=== PATIENT | female | born 1980 | race African-American/Black ===

== ENCOUNTER 2022-02-13 22:30 | Inpatient (IN) | payer MEDICAID ==
[~2022-02-13] VITALS: Ht 154.9 cm; Wt 109.8 kg
[2022-02-14] MEDS ORDERED: RHO(D) IMMUNE GLOBULIN 300 MCG/SYR IM ONE (02:30)
[2022-02-14] MEDS ORDERED: NALOXONE HCL 0.4 MG/ML 1ML VIAL IM PRN (02:30)
[2022-02-14] MEDS ORDERED: LACTATED RINGERS 1,000 ML IV SCH (02:30)
[2022-02-14] MEDS ORDERED: MISOPROSTOL 100MCG TABLET VG SCH (02:30)
[2022-02-14] MEDS ORDERED: CARBOPROST TROMETHAMINE 250 MCG/ML AMPUL IM PRN (02:30)
[2022-02-14] MEDS ORDERED: METHYLERGONOVINE MALEATE 0.2 MG/ML IM PRN (02:30)
[2022-02-14] MEDS ORDERED: LIDOCAINE HCL 1% 20ML VIAL (Pyxis) INJ INFIL SCH (02:30)
[2022-02-14] MEDS ORDERED: BUTORPHANOL TARTRATE 2 MG/ML VIAL IV PRN (02:30)
[2022-02-14 02:57] LABS: BASOPHILS % 0.3 % (0.0-2.0); HEMATOCRIT. 26.7 % (36.0-48.0); LYMPHOCYTES % 29.8 % (20.0-50.0); MEAN CORPUSCULAR HEMOGLOBIN 29.2 pg (28.0-32.0); MEAN CORPUSCULAR VOLUME 86.7 fL (81.0-99.0); MEAN PLATELET VOLUME 7.3 fl (7.4-10.4); NEUTROPHILS % 56.9 % (40.0-76.0); PLATELET 248 x1000/uL (130-400); RED BLOOD CELL COUNT 3.08 mill/uL (4.2-5.4); RED CELL DISTRIBUTION WIDTH 13.8 % (11.6-14.6)
[2022-02-14 03:02] LABS: INR 1.1; PROTHROMBIN TIME 11.3 sec (9.6-11.0)
[2022-02-14 03:28] LABS: CLARITY URINE CLEAR (CLEAR); COLOR URINE YELLOW (YELLOW); KETONES URINE TRACE (NEGATIVE); LEUKOCYTE ESTERASE URINE 2+ (NEGATIVE); NITRITE URINE POSITIVE (NEGATIVE); OCCULT BLOOD URINE NEGATIVE (NEGATIVE); PROTEIN URINE NEGATIVE (NEGATIVE); SPECIFIC GRAVITY URINE 1.015 (1.005-1.030)
[2022-02-14 03:31] LABS: HEPATITIS B SURFACE ANTIGEN NEGATIVE
[2022-02-14 03:40] LABS: *AMPHETAMINES SCREEN URINE NEGATIVE (NEGATIVE); *BARBITURATES SCREEN URINE NEGATIVE (NEGATIVE); *BENZODIAZEPINES SCREEN URINE NEGATIVE (NEGATIVE); *COCAINE SCREEN URINE NEGATIVE (NEGATIVE); CANNABINOID URINE SCREEN NEGATIVE (NEGATIVE); METHADONE URINE SCREEN NEGATIVE (NEGATIVE); OPIATES URINE SCREEN NEGATIVE (NEGATIVE); PHENCYCLIDINE URINE SCREEN NEGATIVE (NEGATIVE)
[2022-02-14] MEDS: OXYTOCIN 30 UNITS/500ML NS PMX 500 ML IV SCH ×2 (07:34→21:51)
[2022-02-14] MEDS: LABETALOL HCL 200MG TABLET PO SCH ×2 (12:45→17:12)
[2022-02-14] MEDS ORDERED: RHO(D) IMMUNE GLOBULIN 300 MCG/SYR IM PRN (21:30)
[2022-02-14] MEDS ORDERED: OXYTOCIN 30 UNITS/500ML NS PMX 500 ML IV SCH (21:30)
[2022-02-14] MEDS ORDERED: GLYCERIN/WITCH HAZEL LEAF MEDICATED PAD TOP PRN (21:30)
[2022-02-14] MEDS ORDERED: BISACODYL 10MG SUPP PR PRN (21:30)
[2022-02-14] MEDS ORDERED: OXYCODONE HCL/ACETAMINOPHEN 5/325MG TABLET PO PRN (21:30)
[2022-02-14] MEDS ORDERED: HEMORRHOIDAL SUPP PR PRN (21:30)
[2022-02-14] MEDS ORDERED: IBUPROFEN 400MG TABLET PO PRN (21:30)
[2022-02-14] MEDS ORDERED: BENZOCAINE/LANOLIN/ALOE VERA SPRAY TOP PRN (21:30)
[2022-02-14] MEDS ORDERED: LANOLIN OINT 7GM TUBE TOP PRN (21:30)
[2022-02-14] MEDS ORDERED: DIPHENHYDRAMINE 25MG CAPSULE PO PRN (21:30)
[2022-02-14 23:30] VITALS: BP 152/69
[2022-02-15] MEDS: IBUPROFEN 800MG TABLET PO PRN ×3 (00:02→20:42)
[2022-02-15 01:16] LABS: BASOPHILS % 0.1 % (0.0-2.0); EOSINOPHILS % 0.2 % (0.0-5.0); HEMOGLOBIN. 9.3 g/dL (12.0-16.0); LYMPHOCYTES % 9.8 % (20.0-50.0); MEAN CORPUSCULAR HEMOGLOBIN 28.3 pg (28.0-32.0); MEAN CORPUSCULAR VOLUME 85.7 fL (81.0-99.0); MEAN PLATELET VOLUME 7.2 fl (7.4-10.4); MONOCYTES % 8.5 % (2.0-8.0); NEUTROPHILS % 81.4 % (40.0-76.0); PLATELET 252 x1000/uL (130-400); RED BLOOD CELL COUNT 3.27 mill/uL (4.2-5.4); RED CELL DISTRIBUTION WIDTH 13.9 % (11.6-14.6)
[2022-02-15 05:45] VITALS: BP 152/96
[2022-02-15 05:46] VITALS: BP 173/88
[2022-02-15] MEDS: LABETALOL HCL 200MG TABLET PO SCH ×2 (06:16→20:42)
[2022-02-15] MEDS: FERROUS SULFATE 325MG TABLET PO SCH ×3 (07:30→17:06)
[2022-02-15 08:00] VITALS: BP 113/62
[2022-02-15] MEDS: SIMETHICONE 80MG TABLET CHEW PO SCH ×4 (08:00→20:43)
[2022-02-15] MEDS: PRENATAL VIT/FE FUMARATE/FA TABLET PO SCH (09:00)
[2022-02-15 20:28] VITALS: BP 159/82
[2022-02-15] MEDS ORDERED: DOCUSATE SODIUM 100MG CAPSULE PO SCH (21:00)
[2022-02-16 00:12] VITALS: BP 136/63
[2022-02-16 04:17] VITALS: BP 142/63
[2022-02-16 07:30] VITALS: BP 149/82
[2022-02-16] MEDS: PRENATAL VIT/FE FUMARATE/FA TABLET PO SCH (08:19)
[2022-02-16] MEDS: FERROUS SULFATE 325MG TABLET PO SCH ×2 (08:19→12:30)
[2022-02-16] MEDS: SIMETHICONE 80MG TABLET CHEW PO SCH ×2 (08:21→12:49)
[2022-02-16] MEDS: LABETALOL HCL 200MG TABLET PO SCH (08:21)
[2022-02-16] MEDS ORDERED: MEDROXYPROGESTERONE ACETATE 150MG/ML VIAL IM NR (10:00)
[2022-02-16] MEDS ORDERED: IBUP-2030 PO (14:03)
[2022-02-16] MEDS ORDERED: LABE200T9 PO (14:03)
== END 2022-02-16 15:37 | disposition home or self-care (01) | DRG 560 ==
LOC: OBSVTOIN 22:30 → 8 EST LDRP 22:30 → 8EST 02-15 00:27
PROVIDERS: ADMIT Obstetrics & Gynecology; ATTEND Obstetrics & Gynecology
PROC: 10E0XZZ Delivery of Products of Conception, External Approach (ICD-10-PCS; principal; 2022-02-14)
PROC: 3E0R3BZ Introduction of Anesthetic Agent into Spinal Canal, Percutaneous Approach (ICD-10-PCS; 2022-02-14)
PROC: 00HU33Z Insertion of Infusion Device into Spinal Canal, Percutaneous Approach (ICD-10-PCS; 2022-02-14)
DX: O13.4 Gestational [pregnancy-induced] hypertension without significant proteinuria, complicating childbirth (principal); Z37.0 Single live birth; O14.94 Unspecified pre-eclampsia, complicating childbirth; Z79.1 Long term (current) use of non-steroidal anti-inflammatories (NSAID); Z20.822 Contact with and (suspected) exposure to COVID-19; Z79.899 Other long term (current) drug therapy; Z3A.39 39 weeks gestation of pregnancy
CPT/HCPCS: 36415; 76805; 76818; 80305; 81003; 85025; 85384; 86592; 86703; 86762; 86850; 86900; 87077; 87186; 87340; 87426; 99281; G0378; J0595; J1050; J7120; J2590

== ENCOUNTER 2024-07-09 16:13 | Inpatient (IN) | payer MEDICAID ==
[~2024-07-09] VITALS: Ht 154.9 cm; Wt 97.1 kg
[~2024-07-09 16:13] MED LIST: IBUP-2030 PO; LABE200T9 PO
[2024-07-09] MEDS: MORPHINE SULFATE 4 MG/ML INJ (FOR IV/IM USE) IV STA (16:54)
[2024-07-09] MEDS: ONDANSETRON HCL 4MG/2ML INJ IV STA (16:54)
[2024-07-09 16:59] LABS: BASOPHILS % 0.7 % (0.0-2.0); EOSINOPHILS % 1.2 % (0.0-5.0); HEMATOCRIT. 37.4 % (36.0-48.0); HEMOGLOBIN. 12.9 g/dL (12.0-16.0); LYMPHOCYTES % 37.8 % (20.0-50.0); MEAN CORPUSCULAR HEMOGLOBIN 31.9 pg (28.0-32.0); MEAN CORPUSCULAR HGB CONC 34.5 g/dL (31.0-37.0); MEAN CORPUSCULAR VOLUME 92.6 fL (81.0-99.0); MEAN PLATELET VOLUME 8.3 fl (7.4-10.4); MONOCYTES % 5.2 % (2.0-8.0); NEUTROPHILS % 55.1 % (40.0-76.0); PLATELET 327 x1000/uL (130-400); RED BLOOD CELL COUNT 4.03 mill/uL (4.2-5.4); RED CELL DISTRIBUTION WIDTH 14.1 % (11.6-14.6); WHITE BLOOD COUNT 7.6 x1000/uL (4.5-11.0)
[2024-07-09 17:06] LABS: CHLORIDE 101 mEq/L (98-107); POTASSIUM 3.4 mEq/L (3.5-5.1); SODIUM 136 mEq/L (136-145)
[2024-07-09 17:07] LABS: CALCIUM 9.9 mg/dL (8.7-10.4); CARBON DIOXIDE 23 mEq/L (21-32)
[2024-07-09 17:10] LABS: INR 1.1; PROTHROMBIN TIME 12.5 sec (9.6-11.0)
[2024-07-09 17:12] LABS: CREATININE 1.2 mg/dL (0.6-1.0); GLUCOSE 169 mg/dL (70-105); UREA NITROGEN BLOOD 15 mg/dL (9-23)
[2024-07-09 17:13] LABS: TROPONIN I HIGH SENSITIVITY 4 ng/L (3.0-34)
[2024-07-09 17:14] LABS: ALANINE AMINOTRANSFERASE 8 IU/L (10-49); ALBUMIN 4.7 g/dL (3.2-4.8); ASPARTATE AMINOTRANSFERASE 18 IU/L (<34); BILIRUBIN DIRECT 0.2 mg/dL (<=3.0); BILIRUBIN TOTAL 0.6 mg/dL (0.1-1.0); ETHANOL BLOOD < 10 mg/dL (<10); PROTEIN TOTAL 8.5 g/dL (6.0-8.3)
[2024-07-09 17:22] LABS: HCG SCREEN NEGATIVE
[2024-07-09 20:00] VITALS: BP 155/77; PULSE 51; RESP 16; TEMP 36.50292; O2SAT 97
[2024-07-09] MEDS ORDERED: HYDRALAZINE 20MG/ML VIAL IV PRN (20:30)
[2024-07-09] MEDS ORDERED: IPRATROPIUM/ALBUTEROL 0.5-3(2.5)MG/3ML NEB HHN PRN (21:00)
[2024-07-09] MEDS: SODIUM CHL 0.9% + KCL 20MEQ/L 1,000 ML IV ONE (22:13)
[2024-07-10] VITALS: PULSE 59; RESP 19; TEMP 36.55848; O2SAT 97
[2024-07-10] MEDS: MORPHINE SULFATE 2 MG/ML INJ (NOT FOR IM USE) IV PRN (00:47)
[2024-07-10] MEDS: MORPHINE SULFATE 4 MG/ML INJ (FOR IV/IM USE) IV STA (08:20)
[2024-07-10] MEDS: ONDANSETRON HCL 4MG/2ML INJ IV STA (08:21)
[2024-07-10] MEDS: PANTOPRAZOLE SODIUM 40 MG/VIAL IV SCH (08:23)
[2024-07-10] MEDS: ONDANSETRON HCL 4MG/2ML INJ IV PRN (08:23)
[2024-07-10] MEDS ORDERED: LOSA1TAB37 MT (08:36)
[2024-07-10] MEDS ORDERED: CARV25TA47 MT (08:36)
[2024-07-10 08:37] LABS: BASOPHILS % 0.3 % (0.0-2.0); EOSINOPHILS % 0.1 % (0.0-5.0); HEMATOCRIT. 40.2 % (36.0-48.0); HEMOGLOBIN. 13.8 g/dL (12.0-16.0); LYMPHOCYTES % 17.1 % (20.0-50.0); MEAN CORPUSCULAR HEMOGLOBIN 32.2 pg (28.0-32.0); MEAN CORPUSCULAR HGB CONC 34.2 g/dL (31.0-37.0); MEAN CORPUSCULAR VOLUME 94.1 fL (81.0-99.0); MEAN PLATELET VOLUME 8.4 fl (7.4-10.4); MONOCYTES % 5.3 % (2.0-8.0); NEUTROPHILS % 77.2 % (40.0-76.0); PLATELET 321 x1000/uL (130-400); RED BLOOD CELL COUNT 4.27 mill/uL (4.2-5.4); RED CELL DISTRIBUTION WIDTH 14.3 % (11.6-14.6); WHITE BLOOD COUNT 8.5 x1000/uL (4.5-11.0)
[2024-07-10 09:06] LABS: CARBON DIOXIDE 26 mEq/L (21-32); CHLORIDE 105 mEq/L (98-107); POTASSIUM 3.4 mEq/L (3.5-5.1); SODIUM 141 mEq/L (136-145)
[2024-07-10 09:07] LABS: CALCIUM 9.5 mg/dL (8.7-10.4); T4 FREE 1.32 ng/dL (0.89-1.76)
[2024-07-10 09:11] LABS: CREATININE 1.1 mg/dL (0.6-1.0); GLUCOSE 96 mg/dL (70-105)
[2024-07-10 09:12] LABS: LDL CHOLESTEROL 99 mg/dL (5-100); TRIGLYCERIDE 50 mg/dL (0-150); UREA NITROGEN BLOOD 12 mg/dL (9-23)
[2024-07-10 09:13] LABS: CHOLESTEROL 175 mg/dL (<200); HDL CHOLESTEROL 66 mg/dL (>65)
[2024-07-10 09:14] LABS: PHOSPHORUS 3.6 mg/dL (2.5-4.9)
[2024-07-10] MEDS ORDERED: SKIN ADHESIVE 0.7 GM EA TOP ONE (09:35)
[2024-07-10] MEDS ORDERED: BUPIVACAINE HCL/PF 0.5% (5MG/ML) 10ML ONE (09:35)
[2024-07-10] MEDS ORDERED: HYDRALAZINE 10 MG in SODIUM CHLORIDE 0.9% 49.5 ML IV PRN (09:45)
[2024-07-10] MEDS ORDERED: NALOXONE HCL 0.4MG/ML VIAL IV PRN (09:45)
[2024-07-10] MEDS ORDERED: ONDANSETRON HCL 4MG/2ML INJ ONE (11:52)
[2024-07-10] MEDS ORDERED: DEXAMETHASONE 4MG/ML 1ML VIAL ONE (11:52)
[2024-07-10] MEDS ORDERED: ROCURONIUM BROMIDE 10MG/ML VIAL 5ML IV ONE (11:52)
[2024-07-10] MEDS ORDERED: MIDAZOLAM HCL 2 MG/2 ML VIAL ONE (11:53)
[2024-07-10] MEDS ORDERED: FENTANYL CITRATE/PF 50MCG/ML 2ML VIAL ONE (11:53)
[2024-07-10 12:00] VITALS: BP 170/91; PULSE 60; RESP 18; RESP 19; TEMP 36.44736; O2SAT 100
[2024-07-10 12:51] VITALS: BP 155/84; PULSE 55; RESP 18; TEMP 36.7516
[2024-07-10] MEDS ORDERED: ONDANSETRON HCL 4MG/2ML INJ IV PRN ×2 (13:00→13:45)
[2024-07-10] MEDS ORDERED: DEXT 5%/0.45% NACL KCL 20MEQ/L 1,000 ML IV SCH (13:00)
[2024-07-10] MEDS ORDERED: MORPHINE SULFATE 4 MG/ML INJ (FOR IV/IM USE) IV PRN (13:00)
[2024-07-10] MEDS ORDERED: HYDROMORPHONE HCL/PF 2MG/ML INJ ONE (13:31)
[2024-07-10] MEDS ORDERED: LABETALOL 5MG/ML 4ML INJ IV PRN (13:45)
[2024-07-10] MEDS ORDERED: HYDROMORPHONE HCL/PF 1MG/ML INJ IV PRN (13:45)
[2024-07-10] MEDS ORDERED: MEPERIDINE HCL/PF 25MG/ML CPJ IV PRN (13:45)
[2024-07-10] MEDS: DEXT 5%/0.45% NACL 1000ML 1,000 ML IV SCH (15:53)
[2024-07-10] MEDS: PIPERACILLIN/TAZO 3.375G/50ML 50 ML IV SCH (15:53)
[2024-07-10 16:11] VITALS: BP 114/84; PULSE 72; RESP 20; TEMP 36.22512; O2SAT 100
[2024-07-10 20:00] VITALS: BP 126/85; PULSE 78; RESP 18; TEMP 37.11408; O2SAT 99
[2024-07-11] VITALS: BP 121/80; PULSE 80; RESP 18; TEMP 36.55848; O2SAT 98
[2024-07-11 04:00] VITALS: BP 134/79; PULSE 93; RESP 18; TEMP 37.00296; O2SAT 100
[2024-07-11] MEDS: MORPHINE SULFATE 2 MG/ML INJ (NOT FOR IM USE) IV PRN (06:23)
[2024-07-11 06:56] LABS: CARBON DIOXIDE 28 mEq/L (21-32); CHLORIDE 106 mEq/L (98-107); POTASSIUM 3.5 mEq/L (3.5-5.1); SODIUM 141 mEq/L (136-145)
[2024-07-11 06:57] LABS: CALCIUM 8.7 mg/dL (8.7-10.4)
[2024-07-11 07:02] LABS: CREATININE 1.1 mg/dL (0.6-1.0); GLUCOSE 117 mg/dL (70-105); UREA NITROGEN BLOOD 11 mg/dL (9-23)
[2024-07-11 07:24] LABS: BASOPHILS % 0.2 % (0.0-2.0); HEMATOCRIT. 31.5 % (36.0-48.0); HEMOGLOBIN. 10.9 g/dL (12.0-16.0); LYMPHOCYTES % 19.5 % (20.0-50.0); MEAN CORPUSCULAR HEMOGLOBIN 32.2 pg (28.0-32.0); MEAN CORPUSCULAR HGB CONC 34.5 g/dL (31.0-37.0); MEAN CORPUSCULAR VOLUME 93.5 fL (81.0-99.0); MEAN PLATELET VOLUME 8.5 fl (7.4-10.4); MONOCYTES % 8.1 % (2.0-8.0); NEUTROPHILS % 72.2 % (40.0-76.0); PLATELET 287 x1000/uL (130-400); RED BLOOD CELL COUNT 3.37 mill/uL (4.2-5.4); RED CELL DISTRIBUTION WIDTH 14.5 % (11.6-14.6); WHITE BLOOD COUNT 10.2 x1000/uL (4.5-11.0)
[2024-07-11 08:00] VITALS: BP 129/76; PULSE 78; RESP 20; TEMP 36.114; O2SAT 99
[2024-07-11] MEDS: ENOXAPARIN 30MG/0.3ML SYR SUBCUT SCH (08:27)
[2024-07-11] MEDS: HYDROCHLOROTHIAZIDE 25MG TABLET PO SCH (08:27)
[2024-07-11] MEDS: LOSARTAN 100 MG TABLET PO SCH (08:28)
[2024-07-11 12:00] VITALS: BP_SYST 117; BP_SYST 140; BP_DIAS 64; BP_DIAS 82; PULSE 65; PULSE 85; RESP 18; TEMP 36.3918; TEMP 36.55848; O2SAT 98; O2SAT 99
[2024-07-11 16:00] VITALS: BP 125/78; PULSE 85; RESP 20; TEMP 36.22512; O2SAT 99
[2024-07-11 20:00] VITALS: BP 124/71; PULSE 86; RESP 18; TEMP 37.16964; O2SAT 95
[2024-07-12] VITALS: BP 119/65; PULSE 85; RESP 19; TEMP 37.28076; O2SAT 97
[2024-07-12 04:00] VITALS: BP 116/60; PULSE 84; RESP 20; TEMP 37.16964; O2SAT 98
[2024-07-12 08:08] VITALS: BP 132/79; PULSE 72; RESP 18; TEMP 36.114; O2SAT 100
[2024-07-12 11:53] LABS: CHLORIDE 102 mEq/L (98-107); POTASSIUM 3.3 mEq/L (3.5-5.1); SODIUM 139 mEq/L (136-145)
[2024-07-12 11:54] LABS: CARBON DIOXIDE 31 mEq/L (21-32)
[2024-07-12 11:55] LABS: CALCIUM 9.2 mg/dL (8.7-10.4)
[2024-07-12 11:59] LABS: CREATININE 1.1 mg/dL (0.6-1.0)
[2024-07-12 12:00] LABS: GLUCOSE 133 mg/dL (70-105); UREA NITROGEN BLOOD 8 mg/dL (9-23)
[2024-07-12 12:02] LABS: PHOSPHORUS 2.1 mg/dL (2.5-4.9)
[2024-07-12 12:07] LABS: BASOPHILS % 0.5 % (0.0-2.0); EOSINOPHILS % 0.5 % (0.0-5.0); HEMATOCRIT. 28.7 % (36.0-48.0); LYMPHOCYTES % 25.9 % (20.0-50.0); MEAN CORPUSCULAR HEMOGLOBIN 32.8 pg (28.0-32.0); MEAN CORPUSCULAR HGB CONC 34.9 g/dL (31.0-37.0); MEAN PLATELET VOLUME 8.4 fl (7.4-10.4); MONOCYTES % 7.7 % (2.0-8.0); NEUTROPHILS % 65.4 % (40.0-76.0); PLATELET 262 x1000/uL (130-400); RED BLOOD CELL COUNT 3.05 mill/uL (4.2-5.4); RED CELL DISTRIBUTION WIDTH 14.4 % (11.6-14.6); WHITE BLOOD COUNT 7.7 x1000/uL (4.5-11.0)
[2024-07-12 12:22] VITALS: BP 146/80; PULSE 82; RESP 18; TEMP 36.114; O2SAT 100
[2024-07-12 16:00] VITALS: BP 143/78; PULSE 77; RESP 18; TEMP 36.114; O2SAT 100
[2024-07-12] MEDS: POTASSIUM PHOSPHATE 30 MMOL in SODIUM CHLORIDE 0.9% 490 ML IV ONE (18:25)
[2024-07-12 20:00] VITALS: BP 114/47; PULSE 79; RESP 18; TEMP 37.11408; O2SAT 100
[2024-07-13] VITALS: BP 112/42; PULSE 78; RESP 18; TEMP 37.00296; O2SAT 95
[2024-07-13 04:00] VITALS: BP 121/50; PULSE 78; RESP 18; TEMP 36.72516; O2SAT 99
[2024-07-13 07:27] VITALS: BP 125/50; PULSE 74; RESP 18; TEMP 36.114; O2SAT 99
[2024-07-13 10:31] LABS: BASOPHILS % 0.3 % (0.0-2.0); EOSINOPHILS % 1.3 % (0.0-5.0); HEMATOCRIT. 29.6 % (36.0-48.0); HEMOGLOBIN. 9.6 g/dL (12.0-16.0); LYMPHOCYTES % 28.6 % (20.0-50.0); MEAN CORPUSCULAR HEMOGLOBIN 30.7 pg (28.0-32.0); MEAN CORPUSCULAR HGB CONC 32.5 g/dL (31.0-37.0); MEAN CORPUSCULAR VOLUME 94.2 fL (81.0-99.0); MEAN PLATELET VOLUME 8.3 fl (7.4-10.4); MONOCYTES % 6.8 % (2.0-8.0); PLATELET 308 x1000/uL (130-400); RED BLOOD CELL COUNT 3.14 mill/uL (4.2-5.4); RED CELL DISTRIBUTION WIDTH 14.3 % (11.6-14.6); WHITE BLOOD COUNT 7.1 x1000/uL (4.5-11.0)
[2024-07-13 10:36] LABS: CHLORIDE 101 mEq/L (98-107); POTASSIUM 3.2 mEq/L (3.5-5.1); SODIUM 138 mEq/L (136-145)
[2024-07-13 10:37] LABS: CALCIUM 9.4 mg/dL (8.7-10.4); CARBON DIOXIDE 31 mEq/L (21-32)
[2024-07-13 10:42] LABS: CREATININE 0.9 mg/dL (0.6-1.0); GLUCOSE 135 mg/dL (70-105); UREA NITROGEN BLOOD 8 mg/dL (9-23)
[2024-07-13 12:09] VITALS: BP 118/62; PULSE 67; RESP 18; TEMP 36.6696; O2SAT 99
[2024-07-13 15:30] VITALS: BP 114/54; PULSE 68; RESP 18; TEMP 36.6696; O2SAT 100
[2024-07-13] MEDS: POTASSIUM CHLORIDE 20MEQ TABLET SR PO NR (17:20)
[2024-07-13 20:00] VITALS: BP 105/55; PULSE 75; RESP 18; TEMP 36.83628; O2SAT 97
[2024-07-14] VITALS: BP 101/55; PULSE 80; RESP 20; TEMP 36.89184; O2SAT 96
[2024-07-14 04:00] VITALS: BP 115/55; PULSE 72; RESP 20; TEMP 36.89184; O2SAT 98
[2024-07-14 07:02] LABS: BASOPHILS % 0.5 % (0.0-2.0); EOSINOPHILS % 2.5 % (0.0-5.0); HEMATOCRIT. 26.2 % (36.0-48.0); HEMOGLOBIN. 8.9 g/dL (12.0-16.0); LYMPHOCYTES % 30.8 % (20.0-50.0); MEAN CORPUSCULAR HEMOGLOBIN 31.8 pg (28.0-32.0); MEAN CORPUSCULAR VOLUME 93.6 fL (81.0-99.0); MEAN PLATELET VOLUME 7.9 fl (7.4-10.4); NEUTROPHILS % 58.2 % (40.0-76.0); PLATELET 274 x1000/uL (130-400); RED CELL DISTRIBUTION WIDTH 14.2 % (11.6-14.6); WHITE BLOOD COUNT 6.2 x1000/uL (4.5-11.0)
[2024-07-14 07:11] LABS: CARBON DIOXIDE 30 mEq/L (21-32); CHLORIDE 102 mEq/L (98-107); POTASSIUM 3.4 mEq/L (3.5-5.1); SODIUM 138 mEq/L (136-145)
[2024-07-14 07:12] LABS: CALCIUM 9.3 mg/dL (8.7-10.4)
[2024-07-14 07:17] LABS: GLUCOSE 108 mg/dL (70-105); UREA NITROGEN BLOOD 10 mg/dL (9-23)
[2024-07-14 07:19] LABS: PHOSPHORUS 3.6 mg/dL (2.5-4.9)
[2024-07-14 08:00] VITALS: BP 116/53; PULSE 74; RESP 18; TEMP 35.72508; O2SAT 95
[2024-07-14] MEDS: POTASSIUM CHLORIDE 20MEQ TABLET SR PO NR (10:53)
[2024-07-14 12:00] VITALS: BP 110/65; PULSE 65; RESP 19; TEMP 36.50292; O2SAT 100
[2024-07-14 12:34] VITALS: BP 110/65; PULSE 65; TEMP 97.7; O2SAT 100
== END 2024-07-14 13:25 | disposition home or self-care (01) | DRG 228 ==
LOC: ER 16:13 → EDBEDREQ 18:43 → EDBEDREQTM 18:43 → 5WST 19:50 → 6WST 07-10 09:35
PROVIDERS: ADMIT Internal Medicine; ATTEND Internal Medicine
PROC: 0WQF0ZZ Repair Abdominal Wall, Open Approach (ICD-10-PCS; principal; 2024-07-10)
DX: K42.0 Umbilical hernia with obstruction, without gangrene (principal); N17.9 Acute kidney failure, unspecified; E83.39 Other disorders of phosphorus metabolism; I10 Essential (primary) hypertension; E87.6 Hypokalemia; Z98.84 Bariatric surgery status; Z79.899 Other long term (current) drug therapy
CPT/HCPCS: 36415; 71045; 74176; 80048; 80061; 80076; 80320; 83036; 83605; 83735; 83880; 84100; 84439; 84443; 84484; 84703; 85025; 88302; 88305; 93005; 99291; J0360; J1100; J1171; J1650; J2250; J2270; J2405; J2470; J2543; J3010; J3480; J3490; J7040; J7060; C1781; G0480

== ENCOUNTER 2025-05-09 05:03 | Inpatient (IN) | payer MEDICAID, OTHER ==
[~2025-05-09] VITALS: Ht 154.9 cm; Wt 108.9 kg
[~2025-05-09 05:03] MED LIST changes: +CARV25TA47 MT; -IBUP-2030 PO; -LABE200T9 PO; +LOSA1TAB37 MT
[2025-05-09 06:03] LABS: BASOPHILS % 0.6 % (0.0-2.0); EOSINOPHILS % 0.1 % (0.0-5.0); HEMATOCRIT. 42.4 % (36.0-48.0); HEMOGLOBIN. 14.5 g/dL (12.0-16.0); LYMPHOCYTES % 22.3 % (20.0-50.0); MEAN PLATELET VOLUME 8.0 fl (7.4-10.4); MONOCYTES % 7.2 % (2.0-8.0); NEUTROPHILS % 69.8 % (40.0-76.0); PLATELET 333 x1000/uL (130-400); RED BLOOD CELL COUNT 4.52 mill/uL (4.2-5.4); RED CELL DISTRIBUTION WIDTH 12.6 % (11.6-14.6)
[2025-05-09 06:18] LABS: CREATININE 1.2 mg/dL (0.6-1.0); UREA NITROGEN BLOOD 12 mg/dL (9-23)
[2025-05-09 06:19] LABS: TROPONIN I HIGH SENSITIVITY 6 ng/L (3.0-34)
[2025-05-09 06:20] LABS: HCG SCREEN NEGATIVE
[2025-05-09] MEDS: ONDANSETRON HCL 4MG/2ML INJ IV ONE (06:27)
[2025-05-09] MEDS: MORPHINE SULFATE 4 MG/ML INJ (FOR IV/IM USE) IV ONE (06:28)
[2025-05-09] MEDS ORDERED: IOHEXOL-350 100 ML BOTTLE ONE (09:18)
[2025-05-09 10:04] VITALS: BP 156/80; PULSE 80; RESP 19; TEMP 36.696
[2025-05-09] MEDS ORDERED: CLONIDINE 0.1MG TABLET PO PRN (10:15)
[2025-05-09] MEDS ORDERED: ONDANSETRON HCL 4MG/2ML INJ IV PRN (10:15)
[2025-05-09] MEDS ORDERED: NALOXONE HCL 0.4MG/ML VIAL IV PRN (10:30)
[2025-05-09] MEDS: ENOXAPARIN 40MG/0.4ML SYR SUBCUT SCH (10:47)
[2025-05-09] MEDS: MORPHINE SULFATE 2 MG/ML INJ (NOT FOR IM USE) IV PRN (10:48)
[2025-05-09] MEDS: PANTOPRAZOLE SODIUM 40 MG/VIAL IV SCH (10:48)
[2025-05-09 12:30] VITALS: BP 137/91; PULSE 71; RESP 20; TEMP 37.2; O2SAT 99
[2025-05-09] MEDS: HYDROCODONE/ACETAMINOPHEN 5/325MG TABLET PO PRN (14:15)
[2025-05-09] MEDS ORDERED: REGADENOSON 0.4 MG/5 ML IV SCH (14:30)
[2025-05-09 16:44] VITALS: BP 143/73; PULSE 97; RESP 20; TEMP 36.6; O2SAT 100
[2025-05-09 17:50] LABS: CLARITY URINE CLEAR (CLEAR); COLOR URINE DARK YELLOW (YELLOW); GLUCOSE URINE NEGATIVE (NEGATIVE); KETONES URINE TRACE (NEGATIVE); LEUKOCYTE ESTERASE URINE NEGATIVE (NEGATIVE); NITRITE URINE NEGATIVE (NEGATIVE); OCCULT BLOOD URINE NEGATIVE (NEGATIVE); PH URINE 6.0 (4.5-8.0); PROTEIN URINE 2+ (NEGATIVE); SPECIFIC GRAVITY URINE >1.040 (1.005-1.030); UROBILINOGEN URINE 0.2 E.U./dL (0.2-1.0)
[2025-05-09 17:51] LABS: TROPONIN I HIGH SENSITIVITY 7 ng/L (3.0-34)
[2025-05-09 18:04] LABS: *AMPHETAMINES SCREEN URINE NEGATIVE (NEGATIVE); *BARBITURATES SCREEN URINE NEGATIVE (NEGATIVE); *BENZODIAZEPINES SCREEN URINE NEGATIVE (NEGATIVE); *COCAINE SCREEN URINE NEGATIVE (NEGATIVE); METHADONE URINE SCREEN NEGATIVE (NEGATIVE); OPIATES URINE SCREEN PRESUMPTIVE POSITIVE (NEGATIVE); PHENCYCLIDINE URINE SCREEN NEGATIVE (NEGATIVE)
[2025-05-09 18:05] LABS: CANNABINOID URINE SCREEN NEGATIVE (NEGATIVE); ECSTASY MDMA SCREEN URINE NEGATIVE (NEGATIVE)
[2025-05-09 18:20] LABS: BACTERIA URINE TRACE; RBC URINE 0-2 /hpf (0-2); SQUAMOUS EPITHELIAL CELL URINE RARE /lpf (RARE/1+); WBC URINE 0-2 /hpf (0-2)
[2025-05-09] MEDS: DEXT 5%/0.9% NACL 1,000 ML IV SCH (18:45)
[2025-05-09] MEDS: MAGNESIUM/ALUMINUM HYDROXIDE/SIMETHICONE 30ML UDC PO PRN (18:53)
[2025-05-09 20:00] VITALS: BP 138/84; PULSE 104; RESP 20; TEMP 36.7; O2SAT 97
[2025-05-09] MEDS ORDERED: ZOLPIDEM TARTRATE 5MG TABLET PO PRN (21:00)
[2025-05-10] VITALS: BP 144/86; PULSE 112; RESP 20; TEMP 36.6; O2SAT 94
[2025-05-10 00:31] LABS: TROPONIN I HIGH SENSITIVITY 10 ng/L (3.0-34)
[2025-05-10 04:00] VITALS: BP 147/89; PULSE 100; RESP 20; TEMP 36.7; O2SAT 95
[2025-05-10 07:49] LABS: BASOPHILS % 0.1 % (0.0-2.0); EOSINOPHILS % 0.0 % (0.0-5.0); HEMATOCRIT. 44.0 % (36.0-48.0); HEMOGLOBIN. 14.9 g/dL (12.0-16.0); LYMPHOCYTES % 8.9 % (20.0-50.0); MEAN PLATELET VOLUME 8.6 fl (7.4-10.4); MONOCYTES % 11.5 % (2.0-8.0); NEUTROPHILS % 79.5 % (40.0-76.0); PLATELET 298 x1000/uL (130-400); RED BLOOD CELL COUNT 4.69 mill/uL (4.2-5.4); RED CELL DISTRIBUTION WIDTH 13.2 % (11.6-14.6)
[2025-05-10 07:54] LABS: CREATININE 1.0 mg/dL (0.6-1.0); UREA NITROGEN BLOOD 12 mg/dL (9-23)
[2025-05-10 08:00] VITALS: BP 131/78; PULSE 102; RESP 20; TEMP 36.2; O2SAT 97
[2025-05-10] MEDS ORDERED: REGADENOSON 0.4 MG/5 ML IV ONE (08:25)
[2025-05-10] MEDS: POTASSIUM CHLORIDE 20MEQ TABLET SR PO NR (12:39)
[2025-05-10] MEDS: CEFTRIAXONE 1GM/50ML 50 ML IV SCH (14:05)
[2025-05-10] MEDS: SUCRALFATE 1G TABLET PO SCH (14:06)
[2025-05-10 16:00] VITALS: BP 121/87; PULSE 65; RESP 18; TEMP 36.2; O2SAT 98
[2025-05-10 20:17] VITALS: BP 137/80; PULSE 122; RESP 19; TEMP 36.4; O2SAT 98
[2025-05-11] VITALS (147 sets, daily range): BP systolic 32–157; BP diastolic 15–140; PULSE 78–176; RESP 15–52; TEMP 36.6–38.6; O2SAT 88–100
[2025-05-11] MEDS: SODIUM CHLORIDE 0.9% 1,000 ML IV ONE ×4 (02:00→16:18)
[2025-05-11 04:12] LABS: UREA NITROGEN BLOOD 18.0 mg/dL (9-23)
[2025-05-11 04:19] LABS: CREATININE 1.7 mg/dL (0.6-1.0)
[2025-05-11] MEDS: PHENYLEPHRINE 50MG/250ML PMX 250 ML IV PRN (07:28)
[2025-05-11 10:20] LABS: BASOPHILS % 0.1 % (0.0-2.0); EOSINOPHILS % 0.1 % (0.0-5.0); HEMOGLOBIN. 20.0 g/dL (12.0-16.0); LYMPHOCYTES % 17.4 % (20.0-50.0); MEAN PLATELET VOLUME 9.0 fl (7.4-10.4); MONOCYTES % 13.7 % (2.0-8.0); NEUTROPHILS % 68.7 % (40.0-76.0); PLATELET 420 x1000/uL (130-400); RED BLOOD CELL COUNT 6.21 mill/uL (4.2-5.4); RED CELL DISTRIBUTION WIDTH 13.1 % (11.6-14.6)
[2025-05-11 10:36] LABS: HEMATOCRIT. 60.8 % (36.0-48.0)
[2025-05-11 10:42] LABS: T4 FREE 1.16 ng/dL (0.89-1.76)
[2025-05-11] MEDS: ACETAMINOPHEN 325MG TABLET PO PRN (12:03)
[2025-05-11] MEDS ORDERED: LIDOCAINE HCL 1% 10 MG/ML 10ML VIAL ONE (12:13)
[2025-05-11] MEDS: ACETAMINOPHEN 650MG SUPP PR NR (12:25)
[2025-05-11 12:39] LABS: BASOPHILS % 0.2 % (0.0-2.0); EOSINOPHILS % 0.2 % (0.0-5.0); HEMOGLOBIN. 19.9 g/dL (12.0-16.0); LYMPHOCYTES % 25.2 % (20.0-50.0); MEAN PLATELET VOLUME 9.3 fl (7.4-10.4); MONOCYTES % 11.2 % (2.0-8.0); NEUTROPHILS % 63.2 % (40.0-76.0); PLATELET 365 x1000/uL (130-400); RED BLOOD CELL COUNT 6.21 mill/uL (4.2-5.4); RED CELL DISTRIBUTION WIDTH 13.4 % (11.6-14.6)
[2025-05-11 12:47] LABS: HEMATOCRIT. 60.8 % (36.0-48.0)
[2025-05-11 13:22] LABS: BG BASE EXCESS -10.4 mmol/L (-2.0-3.0); BG CARBOXYHEMOGLOBIN 0.2 % (0.5-1.5); BG DEOXYHEMOGLOBIN 1.6 % (0.0-5.0); BG FLOW(L/min) 4.00 L/min; BG FRACTION INSPIRED OXYGEN 36; BG HCO3 ACT 13.1 mmol/L (21.0-28.0); BG METHEMOGLOBIN 0.4 % (0.5-1.5); BG OXYGEN SATURATION 98.4 % (94.0-98.0); BG OXYHEMOGLOBIN 97.8 % (94.0-98.0); BG PCO2 26.1 mmHg (32.0-45.0); BG PH 7.317 (7.350-7.450); BG PO2 139.8 mmHg (83.0-108.0); BG SAMPLE SITE RIGHT BRACHIAL; BG TOTAL HEMOGLOBIN 21.9 g/dL (12.0-16.0); BG VENT MODE NASAL CANNULA
[2025-05-11] MEDS: SODIUM BICARBONATE 8.4% 50MEQ/50ML SYR IV SCH (13:58)
[2025-05-11] MEDS: SODIUM CHLORIDE 0.9% 2,000 ML IV ONE (13:59)
[2025-05-11] MEDS ORDERED: DEXTROSE 50% WATER 50ML SYRINGE IV PRN (14:00)
[2025-05-11] MEDS: INSULIN LISPRO 100 UNITS/ML SUBCUT SCH (14:15)
[2025-05-11] MEDS: BLOOD SUGAR DIAGNOSTIC STRIP TEST SCH (14:15)
[2025-05-11] MEDS: METOPROLOL TARTRATE 5MG/5ML VIAL IV SCH (14:45)
[2025-05-11] MEDS ORDERED: AMIODARONE HCL 150 MG in DEXT 5% WATER 100 ML IV ONE (14:45)
[2025-05-11] MEDS ORDERED: AMIODARONE HCL 900 MG in DEXT 5% WATER 482 ML IV SCH (14:45)
[2025-05-11] MEDS ORDERED: AMIODARONE HCL 300 MG in DEXT 5% WATER 100 ML IV ONE (14:45)
[2025-05-11] MEDS: AMIODARONE 150MG/100ML PREMIX IV NR (14:50)
[2025-05-11] MEDS: VASOPRESSIN 20 UNIT in SODIUM CHLORIDE 0.9% 99 ML IV PRN (14:51)
[2025-05-11] MEDS: PROPOFOL 10MG/ML 100ML 100 ML IV PRN (14:52)
[2025-05-11] MEDS: NOREPINEPHRINE 32 MG in DEXT 5% WATER 218 ML IV PRN (14:53)
[2025-05-11] MEDS: AMIODARONE 360MG/200ML D5W PREMIX IV ONE (15:12)
[2025-05-11] MEDS: EPINEPHRINE 5 MG in SODIUM CHLORIDE 0.9% 245 ML IV PRN (15:13)
[2025-05-11 15:22] LABS: BG BASE EXCESS -10.3 mmol/L (-2.0-3.0); BG CARBOXYHEMOGLOBIN 0.2 % (0.5-1.5); BG DEOXYHEMOGLOBIN 1.1 % (0.0-5.0); BG FRACTION INSPIRED OXYGEN 60; BG HCO3 ACT 14.3 mmol/L (21.0-28.0); BG METHEMOGLOBIN 0.4 % (0.5-1.5); BG OXYGEN SATURATION 98.9 % (94.0-98.0); BG OXYHEMOGLOBIN 98.3 % (94.0-98.0); BG PCO2 30.2 mmHg (32.0-45.0); BG PEEP (cmH2O) 5.0 cmH2O; BG PH 7.294 (7.350-7.450); BG PO2 209.8 mmHg (83.0-108.0); BG SAMPLE SITE RIGHT BRACHIAL; BG TIDAL VOLUME(mL) 450.0 mL; BG TOTAL HEMOGLOBIN 20.2 g/dL (12.0-16.0); BG VENT MODE VENT - AC; BG VENT RATE 20.0 set
[2025-05-11] MEDS: VANCOMYCIN 1,750 MG in SODIUM CHLORIDE 0.9% 500 ML IV NR (16:16)
[2025-05-11] MEDS: PIPERACILLIN/TAZO 3.375G/50ML 50 ML IV SCH (16:17)
[2025-05-11] MEDS ORDERED: BLOOD SUGAR DIAGNOSTIC STRIP TEST SCH (16:30)
[2025-05-11] MEDS ORDERED: INSULIN LISPRO 100 UNITS/ML SUBCUT SCH (17:00)
[2025-05-11] MEDS: SODIUM BICARBONATE 150 MEQ in DEXTROSE 5% WATER 850 ML IV SCH (18:23)
[2025-05-11] MEDS: EPINEPHRINE 10 MG in SODIUM CHLORIDE 0.9% 240 ML IV PRN (18:23)
[2025-05-11] MEDS: AMIODARONE 360MG/200ML D5W PREMIX IV SCH (20:28)
[2025-05-11] MEDS ORDERED: MORPHINE SULFATE 4 MG/ML INJ (FOR IV/IM USE) IV PRN (21:00)
[2025-05-11] MEDS: ACETAMINOPHEN 1000MG/100ML 100 ML IV NR (21:53)
[2025-05-11] MEDS: EPINEPHRINE 20 MG in SODIUM CHLORIDE 0.9% 480 ML IV PRN (21:53)
[2025-05-12] VITALS (83 sets, daily range): BP systolic 45–181; BP diastolic 19–133; PULSE 53–120; RESP 12–30; TEMP 93.5–101.7; O2SAT 31–78
[2025-05-12] MEDS: PHENYLEPHRINE 100 MG in DEXT 5% WATER 240 ML IV PRN (00:32)
[2025-05-12 05:16] LABS: TRIGLYCERIDE 98 mg/dL (0-150); UREA NITROGEN BLOOD 19 mg/dL (9-23)
[2025-05-12] MEDS ORDERED: INSULIN REGULAR (HUMULIN R) UD 100 UNITS/ML SYR IV NR (05:30)
[2025-05-12] MEDS: SODIUM BICARBONATE 8.4% 50MEQ/50ML SYR IV NR ×2 (05:43→13:30)
[2025-05-12] MEDS: SODIUM ZIRCONIUM CYCLOSILICATE 10GM/PACKET PO NR (05:44)
[2025-05-12 05:55] LABS: CREATININE 3.4 mg/dL (0.6-1.0)
[2025-05-12] MEDS: INSULIN REGULAR (HUMULIN R) 1000UNITS/10ML VIAL IV NR (06:11)
[2025-05-12] MEDS: CALCIUM GLUCONATE 1GM PREMIX 50 ML IV NR (06:11)
[2025-05-12] MEDS ORDERED: DOPAMINE 400MG/250ML PREMIX 250 ML IV PRN (08:00)
[2025-05-12] MEDS: SODIUM CHLORIDE 0.9% 1,000 ML IV SCH (08:18)
[2025-05-12] MEDS: SODIUM BICARBONATE 8.4% 50MEQ/50ML SYR IV SCH ×2 (08:30→10:51)
[2025-05-12] MEDS: DOPAMINE 800MG PREMIX (DOUBLE) 250 ML IV PRN (08:31)
[2025-05-12 08:45] LABS: HEMATOCRIT. 34.5 % (36.0-48.0); MEAN PLATELET VOLUME 9.2 fl (7.4-10.4); PLATELET 151 x1000/uL (130-400); RED BLOOD CELL COUNT 3.19 mill/uL (4.2-5.4); RED CELL DISTRIBUTION WIDTH 14.4 % (11.6-14.6)
[2025-05-12 08:49] LABS: HEMOGLOBIN. 10.3 g/dL (12.0-16.0)
[2025-05-12] MEDS: CALCIUM GLUCONATE 1GM PREMIX 50 ML IV SCH (09:00)
[2025-05-12 09:47] LABS: BG BASE EXCESS 46.2 mmol/L (-2.0-3.0); BG CARBOXYHEMOGLOBIN 1.6 % (0.5-1.5); BG DEOXYHEMOGLOBIN 0.9 % (0.0-5.0); BG FRACTION INSPIRED OXYGEN 100; BG HCO3 ACT 73.1 mmol/L (21.0-28.0); BG METHEMOGLOBIN 0.3 % (0.5-1.5); BG OXYGEN SATURATION 99.1 % (94.0-98.0); BG OXYHEMOGLOBIN 97.2 % (94.0-98.0); BG PCO2 78.1 mmHg (32.0-45.0); BG PEEP (cmH2O) 5.0 cmH2O; BG PH 7.589 (7.350-7.450); BG PO2 176.6 mmHg (83.0-108.0); BG SAMPLE SITE LEFT FEMORAL; BG TIDAL VOLUME(mL) 450.0 mL; BG TOTAL HEMOGLOBIN 7.7 g/dL (12.0-16.0); BG VENT MODE VENT - AC; BG VENT RATE 16.0 set
[2025-05-12 10:52] LABS: BAND% 16.0 % (1.0-6.0); LYMPHOCYTES % MANUAL 51.0 % (20.0-60.0); METAMYELOCYTES % 2.0 % (0-0); MONOCYTES % MANUAL 2.0 % (2.0-8.0); MYELOCYTES % 6.0 % (0-0); NEUTROPHILS % MANUAL 23.0 % (45.0-75.0); NUCLEATED RED BLOOD CELLS 2 /100 WBC; PLATELET ESTIMATE NORMAL
[2025-05-12 13:18] LABS: BG BASE EXCESS -22.8 mmol/L (-2.0-3.0); BG CARBOXYHEMOGLOBIN 1.8 % (0.5-1.5); BG DEOXYHEMOGLOBIN 6.9 % (0.0-5.0); BG FRACTION INSPIRED OXYGEN 100; BG HCO3 ACT 7.2 mmol/L (21.0-28.0); BG METHEMOGLOBIN 0.3 % (0.5-1.5); BG OXYGEN SATURATION 93.0 % (94.0-98.0); BG OXYHEMOGLOBIN 91.0 % (94.0-98.0); BG PCO2 32.0 mmHg (32.0-45.0); BG PEEP (cmH2O) 5.0 cmH2O; BG PH 6.971 (7.350-7.450); BG PO2 86.3 mmHg (83.0-108.0); BG SAMPLE SITE RIGHT FEMORAL; BG TIDAL VOLUME(mL) 450.0 mL; BG TOTAL HEMOGLOBIN 7.5 g/dL (12.0-16.0); BG VENT MODE VENT - AC; BG VENT RATE 16.0 set
[2025-05-12 16:35] LABS: BG BASE EXCESS -17.4 mmol/L (-2.0-3.0); BG CARBOXYHEMOGLOBIN 1.0 % (0.5-1.5); BG DEOXYHEMOGLOBIN 5.9 % (0.0-5.0); BG FRACTION INSPIRED OXYGEN 100; BG HCO3 ACT 9.3 mmol/L (21.0-28.0); BG METHEMOGLOBIN 0.3 % (0.5-1.5); BG OXYGEN SATURATION 94.0 % (94.0-98.0); BG OXYHEMOGLOBIN 92.8 % (94.0-98.0); BG PCO2 25.4 mmHg (32.0-45.0); BG PEEP (cmH2O) 5.0 cmH2O; BG PH 7.182 (7.350-7.450); BG PO2 77.7 mmHg (83.0-108.0); BG SAMPLE SITE ALINE; BG TIDAL VOLUME(mL) 450.0 mL; BG TOTAL HEMOGLOBIN 6.2 g/dL (12.0-16.0); BG VENT MODE VENT - AC; BG VENT RATE 30.0 set
== END 2025-05-12 19:45 | DRG 720 ==
LOC: ER 05:44 → 7WST 07:57 → EDBEDREQTM 07:58 → EDBEDREQ 07:58 → ENRESERV 08:10 → MICUSO 05-11 02:58
PROVIDERS: ADMIT Internal Medicine; ATTEND Internal Medicine
PROC: 5A1945Z Respiratory Ventilation, 24-96 Consecutive Hours (ICD-10-PCS; 2025-05-11)
PROC: 0BH17EZ Insertion of Endotracheal Airway into Trachea, Via Natural or Artificial Opening (ICD-10-PCS; 2025-05-11)
PROC: 02HV33Z Insertion of Infusion Device into Superior Vena Cava, Percutaneous Approach (ICD-10-PCS; 2025-05-11)
PROC: B548ZZA Ultrasonography of Superior Vena Cava, Guidance (ICD-10-PCS; 2025-05-11)
PROC: 5A12012 Performance of Cardiac Output, Single, Manual (ICD-10-PCS; principal; 2025-05-12)
DX: A41.9 Sepsis, unspecified organism (principal); R65.21 Severe sepsis with septic shock; N17.0 Acute kidney failure with tubular necrosis; J96.01 Acute respiratory failure with hypoxia; K56.609 Unspecified intestinal obstruction, unspecified as to partial versus complete obstruction; E87.20 Acidosis, unspecified; A08.4 Viral intestinal infection, unspecified; E87.6 Hypokalemia; D75.1 Secondary polycythemia; E66.9 Obesity, unspecified; E87.5 Hyperkalemia; I10 Essential (primary) hypertension; R19.5 Other fecal abnormalities; R73.9 Hyperglycemia, unspecified; Z98.84 Bariatric surgery status; E87.0 Hyperosmolality and hypernatremia; Z68.42 Body mass index [BMI] 45.0-49.9, adult
CPT/HCPCS: 31720; 36415; 36573; 36600; 71045; 71275; 74018; 74176; 78452; 80048; 80202; 80305; 81003; 82375; 82805; 82962; 83605; 84439; 84443; 84478; 84484; 84703; 85025; 85379; 86850; 86900; 93005; 93017; 93306; 93970; 94003; 94070; 94664; 96374; 96375; 98960; 99285; A4606; A9500; C1725; J0282; J0612; J0696; J1265; J1650; J1815; J2003; J2270; J2371; J2405; J2470; J2543; J2704; J2785; J3373; J3490; J7040; J7042; J7050; J7060; J7070; Q9967; J0131